=== PATIENT | male | born 1965 | race Caucasian/White ===

== ENCOUNTER 2018-01-08 08:00 | Outpatient (CLI) | payer BC, MEDICAID ==
[2018-01-08 19:02] LABS: BASOPHILS # (AUTO) 0.1 10^3/uL (0.0-0.1); BASOPHILS % (AUTO) 0.7 %; EOSINOPHILS # (AUTO) 0.1 10^3/uL (0.0-0.7); EOSINOPHILS % (AUTO) 1.2 %; HGB - HEMOGLOBIN 14.9 g/dL (14.0-18.0); LYMPHOCYTES # (AUTO) 2.4 10^3/uL (1.5-3.5); LYMPHOCYTES % (AUTO) 33.9 %; MEAN CORPUSCULAR HEMOGLOBIN 31.6 pg (27.0-31.0); MEAN CORPUSCULAR HGB CONC 32.3 g/dL (32.0-36.0); MEAN PLATELET VOLUME 7.4 fL (7.4-11.4); MONOCYTES # (AUTO) 0.4 10^3/uL (0.0-1.0); MONOCYTES % (AUTO) 5.9 %; NEUTROPHILS # (AUTO) 4.1 10^3/uL (1.5-6.6); NEUTROPHILS % (AUTO) 58.3 %; PLT - PLATELET COUNT 387 10^3/uL (130-450); RED BLOOD COUNT 4.72 10^6/uL (4.70-6.10); RED CELL DISTRIBUTION WIDTH 13.6 % (12.0-15.0); WHITE BLOOD COUNT 7.1 x10^3/uL (4.8-10.8)
[2018-01-08 19:20] LABS: BUN - BLOOD UREA NITROGEN 12 mg/dL (6-20); CALCIUM 9.2 mg/dL (8.5-10.3); CARBON DIOXIDE - CO2 22 mmol/L (21-32); CHLORIDE 107 mmol/L (101-111); CHOL/HDL RATIO 3.9 (<5.0); CHOLESTEROL 163 mg/dL; CREATININE 0.7 mg/dL (0.6-1.2); GFR - MDRD 118 (>89); GLUCOSE 91 mg/dL (70-100); HDL CHOLESTEROL 42 mg/dL; LDL CHOLESTEROL,CALCULATED 100 mg/dL; LDL/HDL RATIO 2.4 (<3.6); SODIUM 136 mmol/L (135-145); VLDL CHOLESTEROL 21 mg/dL
== END 2018-01-08 08:01 | disposition home or self-care (01) ==
LOC: LAB.N 08:00
PROVIDERS: ATTEND Physician Assistant Medical
DX: Z00.00 Encounter for general adult medical examination without abnormal findings (principal); F17.200 Nicotine dependence, unspecified, uncomplicated; Z71.6 Tobacco abuse counseling; Z12.11 Encounter for screening for malignant neoplasm of colon; B20 Human immunodeficiency virus [HIV] disease
CPT/HCPCS: 36415; 80048; 80061; 83721; 84443; 85025

== ENCOUNTER 2018-05-09 08:00 | Outpatient (CLI) | payer BC ==
[2018-05-09 13:17] LABS: BASOPHILS % (AUTO) 0.7 %; EOSINOPHILS # (AUTO) 0.1 10^3/uL (0.0-0.7); EOSINOPHILS % (AUTO) 1.5 %; HGB - HEMOGLOBIN 14.5 g/dL (14.0-18.0); LYMPHOCYTES % (AUTO) 31.4 %; MEAN CORPUSCULAR HEMOGLOBIN 32.9 pg (27.0-31.0); MEAN CORPUSCULAR HGB CONC 33.7 g/dL (32.0-36.0); MEAN CORPUSCULAR VOLUME 97.7 fL (80.0-94.0); MEAN PLATELET VOLUME 7.2 fL (7.4-11.4); MONOCYTES # (AUTO) 0.4 10^3/uL (0.0-1.0); MONOCYTES % (AUTO) 6.1 %; NEUTROPHILS # (AUTO) 3.9 10^3/uL (1.5-6.6); NEUTROPHILS % (AUTO) 60.3 %; PLT - PLATELET COUNT 345 10^3/uL (130-450); RED BLOOD COUNT 4.41 10^6/uL (4.70-6.10); RED CELL DISTRIBUTION WIDTH 13.2 % (12.0-15.0); WHITE BLOOD COUNT 6.4 x10^3/uL (4.8-10.8)
[2018-05-09 13:52] LABS: CREATININE 0.6 mg/dL (0.6-1.2)
== END 2018-05-09 08:01 | disposition home or self-care (01) ==
LOC: LAB.N 08:00
PROVIDERS: ATTEND Physician Assistant Medical
DX: R10.9 Unspecified abdominal pain (principal); B20 Human immunodeficiency virus [HIV] disease
CPT/HCPCS: 36415; 80048; 85025

== ENCOUNTER 2018-07-14 08:57 | Emergency (ER) | payer BC ==
--- NOTE | 2018-07-14 09:28 | ED Physician Documentation ---
PD HPI DYSPNEA - Stated complaint Stated Complaint: SOA/DIZZY - Chief complaint Chief Complaint: Resp - History obtained from History obtained from: Patient - History of Present Illness Timing - onset: How many weeks ago (4) Timing - duration: Weeks (4) Timing - details: Gradual onset, Intermittant, Still present in ED Pain level max: 0 Pain level now: 0 Inciting event(s): URI. No: Immobilization/travel Associated symptoms: Cough, Diaphoresis, Other (tiredness, malaise, lightheadedness, short of breath). No: Fever, Hemoptysis, Chest pain / discomfort Similar symptoms before: Has not had sx before Recently seen: Not recently seen - Additional information Additional information: Pt states the past couple of weeks have had URI but it lingers. He decided to come to the E.R. 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 Pt claims has hx of HIV from a neck tattoo 20 years ago. Started on retroviral 15 years ago. Had been a smoker for many years. Denies trauma, travel or sick contacts. States did not get his flu and pneumonia shots yet. Review of Systems Ten Systems: 10 systems reviewed and negative Constitutional: reports: Chills, Myalgias, Fatigue, Sweats. denies: Fever Ears: denies: Ear pain Nose: reports: Rhinorrhea / runny nose, Congestion Throat: denies: Sore throat Cardiac: denies: Chest pain / pressure Respiratory: reports: Dyspnea, Cough. denies: Hemoptysis GI: denies: Abdominal Pain, Vomiting, Diarrhea : denies: Dysuria, Frequency Skin: denies: Rash Musculoskeletal: denies: Neck pain, Back pain Neurologic: reports: Generalized weakness. denies: Focal weakness, Near syncope, Syncope, Headache PD PAST MEDICAL HISTORY - Past Medical History Other Past Medical History: HIV+ on retroviral meds - Past Surgical History Past Surgical History: No - Present Medications Home Medications: Ambulatory Orders Medication Instructions Recorded Confirmed Efavirenz/Emtricitab/Tenofovir 1 tab 07/14/18 [Atripla Tablet] - Allergies Allergies/Adverse Reactions: Allergies Allergy/AdvReac Type Severity Reaction Status Date / Time No Known Drug Allergies Allergy Verified 07/14/18 09:02 - Social History Does the pt smoke?: Yes Smoking Status: Current every day smoker Does the pt drink ETOH?: Yes Substance Use and Type: Marijuana PD ED PE NORMAL - Vitals Vital signs reviewed: Yes - General General: Alert and oriented X 3, No acute distress, Well developed/nourished - HEENT HEENT: Moist mucous membranes, Pharynx benign - Neck Neck: Supple, no meningeal sign - Cardiac Cardiac: RRR, No murmur - Respiratory Respiratory: No respiratory distress, Clear bilaterally - Abdomen Abdomen: Normal bowel sounds, Soft, Non tender, Non distended - Back Back: No CVA TTP - Derm Derm: Normal color, Warm and dry - Extremities Extremities: No deformity - Neuro Neuro: Alert and oriented X 3 - Psych Psych: Normal mood, Normal affect Results - Vitals Vitals: Vital Signs - 24 hr 07/14/18 08:59 Temperature 36.2 C L Heart Rate 74 Respiratory 20 Rate Blood Pressure 147/88 H O2 Saturation 100 Oxygen O2 Source Room air - EKG (time done) 0912 Rate: Rate (enter#) (65) Rhythm: NSR [place]: LAD Intervals: Normal SD QRS: Normal Ischemia: Normal ST segments PD MEDICAL DECISION MAKING - ED course Complexity details: re-evaluated patient (Pt NAD, nontoxic. Informed of test results. Discussed outpt treatment plans including smoking cessation, rest, fluids, healthy foods, otc tylenol/motrin and if worse return to the E.R. Pt expressed understanding.), considered differential (flu, viral syndrome, uri, mono, bronchitis, pneumonia, p.e., acs), d/w patient Departure - Departure Disposition: 01 Home, Self Care Clinical Impression: Viral syndrome, Smoker, HIV antibody positive COPD (chronic obstructive pulmonary disease) Qualifiers: COPD type: unspecified COPD Qualified Code(s): J44.9 - Chronic obstructive pulmonary disease, unspecified Condition: Good Instructions: ED Viral Syndrome, ED Reactive Airway Disease Follow-Up: Orlin Camargo PA-C [Primary Care Provider] - Within 1 week Comments: SMOKING CESSATION. OTC TYLENOL/MOTRIN FOR PAIN OR FEVER. DRINK LOTS OF FLUIDS. EAT HEALTHY. REST. FOLLOW UP W/ PCP. IF WORSE RETURN TO THE E.R.
--- NOTE | 2018-07-14 10:02 | XRAY Report ---
Reason: cough Procedure Date: 07/14/2018 Accession Number: [id number] / [id number] Procedure: XR - Chest 2 View X-Ray CPT Code: 75507 FULL RESULT: EXAM: CHEST RADIOGRAPHY EXAM DATE: 07/14/2018 09:40 AM. CLINICAL HISTORY: Cough. COMPARISON: Chest radiograph 06/30/2011. TECHNIQUE: 2 views. FINDINGS: Lungs/Pleura: Increased volumes. Increased lung markings. No focal opacity. No effusions. Mediastinum: Stable Other: None. IMPRESSION: Obstructive airways disease RADIA
[2018-07-14 10:06] LABS: BASOPHILS % (AUTO) 0.6 %; EOSINOPHILS # (AUTO) 0.1 10^3/uL (0.0-0.7); HGB - HEMOGLOBIN 14.8 g/dL (14.0-18.0); LYMPHOCYTES # (AUTO) 1.7 10^3/uL (1.5-3.5); LYMPHOCYTES % (AUTO) 32.6 %; MEAN CORPUSCULAR HEMOGLOBIN 33.4 pg (27.0-31.0); MEAN CORPUSCULAR HGB CONC 34.4 g/dL (32.0-36.0); MEAN CORPUSCULAR VOLUME 96.9 fL (80.0-94.0); MEAN PLATELET VOLUME 6.4 fL (7.4-11.4); MONOCYTES # (AUTO) 0.4 10^3/uL (0.0-1.0); MONOCYTES % (AUTO) 7.6 %; NEUTROPHILS % (AUTO) 58.2 %; PLT - PLATELET COUNT 305 10^3/uL (130-450); RED BLOOD COUNT 4.45 10^6/uL (4.70-6.10); RED CELL DISTRIBUTION WIDTH 13.3 % (12.0-15.0); WHITE BLOOD COUNT 5.2 x10^3/uL (4.8-10.8)
[2018-07-14 10:15] LABS: CALCIUM 8.9 mg/dL (8.5-10.3); CREATININE 0.6 mg/dL (0.6-1.2)
[2018-07-14 10:59] VITALS: BP 138/92
== END 2018-07-14 10:59 | disposition home or self-care (01) ==
LOC: ED 08:57
DX: B34.9 Viral infection, unspecified (principal); F17.200 Nicotine dependence, unspecified, uncomplicated; B20 Human immunodeficiency virus [HIV] disease; Z79.899 Other long term (current) drug therapy; J44.9 Chronic obstructive pulmonary disease, unspecified; R94.31 Abnormal electrocardiogram [ECG] [EKG]
CPT/HCPCS: 36415; 71046; 80048; 84484; 85025; 85379; 86308; 87275; 87276; 93005; 99283

== ENCOUNTER 2020-05-22 12:16 | Outpatient (CLI) | payer BC ==
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
== END 2020-05-22 12:17 | disposition home or self-care (01) ==
LOC: DI 12:16
PROVIDERS: ATTEND Family Medicine
DX: L08.89 Other specified local infections of the skin and subcutaneous tissue (principal)